=== PATIENT | female | born 1965 | race Caucasian/White ===

== ENCOUNTER 2017-08-09 19:05 | Emergency (ER) | payer OTHER ==
[~2017-08-09] VITALS: Ht 152.4 cm; Wt 53.3 kg
[~2017-08-09 19:05] MED LIST: PERC7.5T13 PO
[2017-08-09 19:12] VITALS: BP 120/69; PULSE 123; RESP 20; TEMP 98.2; O2SAT 98
[2017-08-09 19:30] LABS: BLOOD, URINE SMALL (NEG); GLUCOSE,URINE NEG (NEG); KETONE, URINE NEG (NEG); NITRITE,URINE NEG (NEG)
[2017-08-09 19:35] LABS: URINE COLOR YELLOW (YELLW/STRAW)
[2017-08-09 19:36] LABS: SQUAMOUS EPITHELIAL CELL URINE > 8 /hpf (0-5); WBC, URINE 100-200 /hpf (0-5)
[2017-08-09 19:37] LABS: BACTERIA, URINE MOD /hpf; COMMENT (UR) CULTURE INDICATED; CULTURE IF INDICATED CULTURE INDICATED
[2017-08-09] MEDS ORDERED: ESTR1TAB PO (19:49)
[2017-08-09] MEDS ORDERED: TRAZ50TA12 PO (19:49)
[2017-08-09] MEDS ORDERED: MULT-65 PO (19:49)
--- NOTE | 2017-08-09 19:50 | PD ---
HPI Chief Complaint: Flank/Kidney Pain Time Seen by Provider: 19:14 Travel History International Travel<30 days: No Contact w/Intl Traveler<30days: No Traveled to known affect area: No History of Present Illness HPI The patient is a 52-year-old female who complains of generalized myalgias, bilateral flank pain, fever and chills for 4 days. She denies any dysuria, frequency or urgency. She does have nausea with occasional vomiting and no diarrhea. PFSH Past Medical History Arthritis: No Blood Disorders: No Anxiety: No Depression: Yes Cancer: No Cardiovascular Problems: No Chemotherapy: No Cerebrovascular Accident: No Endocrine: No Genitourinary: No Headaches: No Hepatitis: No Hiatal Hernia: No Immune Disorder: No Musculoskeletal: No Neurologic: No Psychiatric: Yes Reproductive: Yes Respiratory: No Migraines: No Radiation Therapy: No Seizures: No Past Surgical History Abdominal Surgery: No AICD: No Body Medical Devices: JASON. BREASTS Cardiac Surgery: No Ear Surgery: No Endocrine Surgery: No Eye Surgery: No Genitourinary Surgery: No Gynecologic Surgery: Yes (C SECTION X3, ECTOPIC PREG) Joint Replacement: No Oral Surgery: No Pacemaker: No Thoracic Surgery: Yes (AUG MAMMOPLASTY BILAT) Social History Alcohol Use: No Tobacco Use: Yes (QUIT 2MONTHS) Substance Use: No Allergies-Medications (Allergen,Severity, Reaction): Coded Allergies: No Known Allergies (Verified Allergy, Severe, 04/24/08) Uncoded Allergies: ORAL ANSAID (Adverse Reaction, Unknown, [facility], 08/09/17) Reported Meds & Prescriptions Reported Meds & Active Scripts Active Prochlorperazine Supp (Prochlorperazine) 25 Mg Supp 25 Mg RECTAL Q12HR Macrobid (Nitrofurantoin Monohydrate Macrocrystals) 100 Mg Capsule 100 Mg PO BID 10 Days Ibuprofen 600 Mg Tab 600 Mg PO DAILY Reported Multi-Vitamin Daily (Multiple Vitamin) 1 Tab Tab 1 Tab PO DAILY Estradiol 1 Mg Tab 1 Mg PO DAILY Trazodone (Trazodone HCl) 50 Mg Tab 50 Mg PO HS Review of Systems Except as stated in HPI: all other systems reviewed are Neg Physical Exam Narrative GENERAL: The patient is alert, oriented 3, slightly dehydrated-appearing in moderate apparent distress with her bilateral flank pain. SKIN: Focused skin assessment warm/dry. HEAD: Atraumatic. Normocephalic. EYES: Pupils equal and round. No scleral icterus. No injection or drainage. ENT: No nasal bleeding or discharge. Mucous membranes pink and moist. NECK: Trachea midline. No JVD. CARDIOVASCULAR: Regular rate and rhythm. No murmur appreciated. RESPIRATORY: No accessory muscle use. Clear to auscultation. Breath sounds equal bilaterally. GASTROINTESTINAL: Abdomen soft, non-tender, nondistended. Hepatic and splenic margins not palpable. MUSCULOSKELETAL: No obvious deformities. No clubbing. No cyanosis. No edema. NEUROLOGICAL: Awake and alert. No obvious cranial nerve deficits. Motor grossly within normal limits. Normal speech. PSYCHIATRIC: Appropriate mood and affect; insight and judgment normal. Data Data Last Documented VS Vital Signs Date Time Temp Pulse Resp B/P (MAP) Pulse Ox O2 Delivery O2 Flow Rate FiO2 08/09/17 19:12 98.2 123 20 120/69 (86) 98 Orders Orders Urinalysis - C+S If Indicated (08/09/17 19:14) Influenzae A/B Antigen (08/09/17 19:15) Urine Culture (08/09/17 19:20) Ceftriaxone Inj (Rocephin Inj) (08/09/17 20:00) Ketorolac Inj (Toradol Inj) (08/09/17 20:00) Sodium Chlor 0.9% 1000 Ml Inj (Ns 1000 M (08/09/17 20:00) Ondansetron Inj (Zofran Inj) (08/09/17 20:15) Nitrofurantoin Monohyd Macrocr (Macrobid (08/09/17 21:15) Labs Laboratory Tests Test 08/09/17 19:20 Urine Color YELLOW Urine Turbidity CLOUDY Urine pH 6.0 Urine Specific [place] 1.009 Urine Protein TRACE mg/dL Urine Glucose (UA) NEG mg/dL Urine Ketones NEG mg/dL Urine Occult Blood SMALL Urine Nitrite NEG Urine Bilirubin NEG Urine Leukocyte Esterase LARGE Urine RBC 4-9 /hpf Urine WBC 100-200 /hpf Urine Squamous Epithelial Cells > 8 /hpf Urine Bacteria MOD /hpf Microscopic Urinalysis Comment CULTURE INDICATED MDM Medical Decision Making Medical Screen Exam Complete: Yes Emergency Medical Condition: Yes Medical Record Reviewed: Yes Interpretation(s) The urine shows infection. Differential Diagnosis Cystitis, pyelonephritis, flu syndrome, nonspecific viral syndrome, urinary stone Narrative Course The patient has pyelonephritis. There is no clinical evidence for cystitis. Diagnosis Primary Impression: Pyelonephritis Additional Instructions: Drink plenty of liquids. Take the antibiotic one tablet twice daily for 10 days. The suppository as one every 12 hours as needed. Scripts Prochlorperazine Supp (Prochlorperazine Supp) 25 Mg Supp 25 MG RECTAL Q12HR for Nausea/Vomiting, #15 SUPP 0 Refills Prov: Evens Saucedo MD 08/09/17 Nitrofurantoin Monohydrate Macrocrystals (Macrobid) 100 Mg Capsule 100 MG PO BID for Infection for 10 Days, #20 CAP 0 Refills Prov: Evens Saucedo MD 08/09/17 Ibuprofen (Ibuprofen) 600 Mg Tab 600 MG PO DAILY, #33 TAB 0 Refills Prov: Evens Saucedo MD 08/09/17 Disposition: 01 DISCHARGE HOME Condition: Stable Evens Saucedo MD Aug 09, 2017 19:50
[2017-08-09 20:00] VITALS: BP 110/74; PULSE 114; RESP 20; O2SAT 99
[2017-08-09] MEDS ORDERED: cefTRIAXone INJ 1,000 MG in SODIUM CHLORIDE 0.9% INJ 100 ML IV ONE (20:00)
[2017-08-09] MEDS ORDERED: SODIUM CHLOR 0.9% 1000 ML INJ 1,000 ML IV SCH (20:00)
[2017-08-09] MEDS ORDERED: KETOROLAC TROMETHAMINE 30 MG/ML (IVP) VIAL IV PUSH ONE (20:00)
[2017-08-09] MEDS ORDERED: ONDANSETRON HCL 4 MG/2 ML VIAL IV ONE (20:15)
[2017-08-09] MEDS ORDERED: MACR100C2 PO (21:10)
[2017-08-09] MEDS ORDERED: IBUP-232 PO (21:10)
[2017-08-09] MEDS ORDERED: PROC25SU22 RECTAL (21:13)
[2017-08-09] MEDS ORDERED: NITROFURANTOIN MONOHYD MACROCR 100 MG CAP PO ONE (21:15)
[2017-08-09 21:35] VITALS: RESP 20
[2017-08-09 21:40] VITALS: BP 105/62; TEMP 99.2
== END 2017-08-09 21:45 | disposition home or self-care (01) ==
LOC: PHED 19:05
DX: N12 Tubulo-interstitial nephritis, not specified as acute or chronic (principal); B96.20 Unspecified Escherichia coli [E. coli] as the cause of diseases classified elsewhere
CPT/HCPCS: 81001; 87077; 87086; 87186; 87804; 96365; 96375; 99284; J0696; J1885; J2405; J7030

== ENCOUNTER → 2018-02-14 | Outpatient (CLI) | payer OTHER ==
[~2018-02-14] MED LIST changes: +CHLORHEXIDINE GLUCONATE 2 % 1 PACK (2 CLOTHS) TOPICAL; +METOPROLOL TARTRATE 25 MG TAB PO; -PERC7.5T13 PO; +POVIDONE IODINE 5% (ANTISEPSIS KIT) 4 APPLICATIONS EACH NARE; +SODIUM CHLORID 0.9% 500 ML IV
[2018-02-14] MEDS: LACTATED RINGER'S 1000 ML IV (10:50)
== END ==
LOC: HEND 09:45
DX: Z12.11 Encounter for screening for malignant neoplasm of colon (principal); K64.4 Residual hemorrhoidal skin tags; K64.8 Other hemorrhoids; R94.31 Abnormal electrocardiogram [ECG] [EKG]
CPT/HCPCS: 00812; 93005